=== PATIENT | female | born 1975 | race Caucasian/White ===

== ENCOUNTER 2019-05-07 13:10 | Emergency (ER) | payer MEDICAID ==
[~2019-05-07] VITALS: Ht 165.1 cm; Wt 68.0 kg
[2019-05-07 13:26] VITALS: BP 116/78
[2019-05-07] MEDS ORDERED: HYDROCODONE/ACETAMINOPHEN 5/325MG TABLET PO ONE (14:00)
[2019-05-07] MEDS ORDERED: KETOROLAC 60MG/2ML VIAL IM ONE (14:00)
[2019-05-07] MEDS ORDERED: ONDANSETRON 4MG ODT PO ONE (14:00)
[2019-05-07] MEDS ORDERED: CEFAZOLIN SODIUM 1000MG/VIAL IM ONE (14:15)
== END 2019-05-07 16:41 | disposition home or self-care (01) ==
LOC: ER 13:10
DX: M26.603 Bilateral temporomandibular joint disorder, unspecified (principal); K04.7 Periapical abscess without sinus; R68.84 Jaw pain
CPT/HCPCS: 96372; 99283; J0690; J1885; Q0162

== ENCOUNTER 2021-04-06 14:26 | Emergency (ER) | payer MEDICAID ==
[~2021-04-06] VITALS: Ht 165.1 cm; Wt 78.0 kg
[2021-04-06 14:40] VITALS: BP 114/74
[2021-04-06] MEDS ORDERED: CLOT15CR5 TP (15:31)
== END 2021-04-06 15:58 | disposition home or self-care (01) ==
LOC: ER 14:26
DX: B35.4 Tinea corporis (principal)
CPT/HCPCS: 99283